=== PATIENT | female | born 1985 | race American Indian/Alaskan Native ===

== ENCOUNTER 2017-03-15 12:27 | Day surgery (SDC) | payer MEDICAID ==
[2017-03-15 13:57] VITALS: BP 134/77
--- NOTE | 2017-04-05 07:23 | Operative Report ---
PREOPERATIVE DIAGNOSES: 1. Closed nasal fracture status post, closed reduction with splinting. 2. The patient's accidentally removed splint prematurely. POSTOPERATIVE DIAGNOSIS: 1. Closed nasal fracture status post closed reduction with splinting 2. The patient's accidentally removed splint prematurely. PROCEDURE: Reapplication of his Aquaplast splint. SURGEON: Dr. Peters. DESCRIPTION OF PROCEDURE: The patient was brought to the operating room and placed on the table in supine position. The nose was cleansed with alcohol swab followed by application of half-inch Steri-Strips and the Aquaplast splint, was submerged in hot water until malleable, then reapplied over the nose. Patient tolerated the procedure well and returned to recovery room in stable condition. JOB# [id number] [id number]/[id number]
== END 2017-03-15 12:28 | disposition home or self-care (01) ==
LOC: OR 12:27
PROVIDERS: ATTEND Plastic Surgery
DX: S02.2XXD Fracture of nasal bones, subsequent encounter for fracture with routine healing (principal); X58.XXXD Exposure to other specified factors, subsequent encounter